=== PATIENT | female | born 1975 | race Caucasian/White ===

== ENCOUNTER 2017-03-31 17:15 | Emergency (ER) | payer MEDICAID ==
--- NOTE | 2017-03-31 17:23 | ED Physician Documentation ---
PD HPI ANIMAL BITE - Stated complaint Stated Complaint: CAT SCRATCH - Chief complaint Chief Complaint: Wound - History obtained from History obtained from: Patient - History of Present Illness Location of injury(ies): Face (multiple areas of face, and also lac to right ear near tragus.) Details of the event: Cat, Pet animal, Well appearing, Provoked (patient was holding the cat and a dog came near it, the cat freaked out and started clawing , getting patient in the face and right ear. No injury to the eyes themselves.) Timing - onset: Today Timing - duration: Hours Timing - details: Abrupt onset Associated symptoms: No: Weakness, Numbness Contributing factors: No: Immunocompromised, Asplenic Similar symptoms before: Has not had sx before Recently seen: Not recently seen Review of Systems Constitutional: denies: Fever, Chills Eyes: denies: Loss of vision, Decreased vision, Irritation Nose: denies: Rhinorrhea / runny nose, Congestion Throat: denies: Sore throat PD PAST MEDICAL HISTORY - Past Medical History Cardiovascular: None Respiratory: None Neuro: None Endocrine/Autoimmune: None - Present Medications Home Medications: Ambulatory Orders Medication Instructions Recorded Confirmed Amox/Clav 875/125 [Augmentin] 1 each PO BID #10 tablet 03/31/17 - Allergies Allergies/Adverse Reactions: Allergies Allergy/AdvReac Type Severity Reaction Status Date / Time No Known Drug Allergies Allergy Verified 03/31/17 17:23 PD ED PE NORMAL - Vitals Vital signs reviewed: Yes - General General: Alert and oriented X 3, No acute distress, Well developed/nourished - HEENT HEENT: PERRL, EOMI, Other (right ear near tragus with small tear lac, without bleeding. Cleansed with cotton tipped applicator and then steri-strips placed. ) - Neck Neck: Supple, no meningeal sign, No adenopathy, Other (the face has multiple cat nail punctures on forehead, cheeks, and right sode of face. No FB nor bleeding noted. ) Results - Vitals Vitals: Vital Signs - 24 hr 03/31/17 17:15 Temperature 36.6 C Heart Rate 68 Respiratory 18 Rate Blood Pressure 147/82 H O2 Saturation 98 Oxygen O2 Source Room air PD MEDICAL DECISION MAKING - ED course Complexity details: considered differential, d/w patient Departure - Departure Disposition: 01 Home, Self Care Clinical Impression: Cat scratch of face Qualifiers: Encounter type: initial encounter Qualified Code(s): S00.81XA - Abrasion of other part of head, initial encounter; W55.03XA - Scratched by cat, initial encounter Laceration of right ear lobe Qualifiers: Encounter type: initial encounter Qualified Code(s): S01.311A - Laceration without foreign body of right ear, initial encounter Condition: Stable Record reviewed to determine appropriate education?: Yes Instructions: Bites Scratches Animal Prescriptions: Amox/Clav 875/125 [Augmentin] 1 each PO BID #10 tablet Comments: Cleanse facial wounds with soap and water and apply ointment 1-2 times daily. Leave the ear wound clean and dry and allow the steri-strips to fall off on their own in several days. Augmentin twice daily for 5 days to reduce chance of infection. Recheck if infection despite that. Tylenol or Ibuprofen as needed for pains. At least one of your blood pressure readings in the ER today was elevated above the normal level. If you have diagnosed high blood pressure in the past, please be sure you are taking your BP medications and eating low salt diet. If you do not have know high BP, then being high today does not mean it is a lobsterman issue. It might be reactively high to the situation that has you here. You should follow up with your primary care to have the blood pressure checked again in the next few days/week or so to see if it is persistently high. If so, then you may need medication or changes in diet/lifestyle to treat it.
[2017-03-31] MEDS ORDERED: AMOX/CLAV 875 MG/125 MG TABLET PO STA (17:38)
[2017-03-31] MEDS ORDERED: AMOX/CLAV 875 MG/125 MG TABLET PO ONE (17:40)
[2017-03-31 18:09] VITALS: BP 133/90
== END 2017-03-31 18:07 | disposition home or self-care (01) ==
LOC: ED 17:15
DX: S00.81XA Abrasion of other part of head, initial encounter (principal); S01.311A Laceration without foreign body of right ear, initial encounter; W55.03XA Scratched by cat, initial encounter; R03.0 Elevated blood-pressure reading, without diagnosis of hypertension
CPT/HCPCS: 99283; A9270

== ENCOUNTER 2019-01-15 21:27 | Emergency (ER) | payer MEDICAID ==
[2019-01-15] MEDS ORDERED: IPRATROPIUM/ALBUTEROL 3 ML NEB INH STA (23:01)
[2019-01-15] MEDS ORDERED: ACETAMINOPHEN 325 MG TABLET PO STA (23:01)
--- NOTE | 2019-01-15 23:33 | XRAY Report ---
Reason: cough, dyspnea Procedure Date: 01/15/2019 Accession Number: [id number] / [id number] Procedure: XR - Chest 2 View X-Ray CPT Code: 19781 FULL RESULT: EXAM: CHEST RADIOGRAPHY EXAM DATE: 01/15/2019 11:24 PM. CLINICAL HISTORY: Cough, dyspnea.; Heavy shortness of breath on Friday, heavy nonproductive cough today. COMPARISON: None. TECHNIQUE: 2 views. FINDINGS: Lungs/Pleura: No focal opacities evident. No pleural effusion. No pneumothorax. Normal volumes. Mediastinum: Heart and mediastinal contours are unremarkable. Other: None. IMPRESSION: Normal 2-view chest radiography. [facility]
--- NOTE | 2019-01-16 00:12 | ED Physician Documentation ---
PD HPI URI - Stated complaint Stated Complaint: FLU SYMPTOMS - Chief complaint Chief Complaint: Heent - History obtained from History obtained from: Patient - History of Present Illness Timing - onset: How many days ago (5) Timing duration: Days (5) Timing details: Gradual onset Associated symptoms: Dry cough. No: Fever Contributing factors: Sick contact (daughter diagnosed with influenza (by swab) last week) Improves by: Rest Worsened by: Activity Similar symptoms before: Has not had sx before Recently seen: Not recently seen Review of Systems Constitutional: denies: Fever Throat: denies: Sore throat Cardiac: denies: Chest pain / pressure Respiratory: reports: Dyspnea, Cough Musculoskeletal: denies: Extremity swelling PD PAST MEDICAL HISTORY - Past Medical History Past Medical History: Yes Cardiovascular: None Respiratory: Asthma Neuro: None Endocrine/Autoimmune: None GI: None [employer]: None : None HEENT: None Psych: None Musculoskeletal: None Derm: None - Past Surgical History Past Surgical History: Yes /[employer]ER: section - Present Medications Home Medications: Ambulatory Orders Medication Instructions Recorded Confirmed Amox/Clav 875/125 [Augmentin] 1 each PO BID #10 tablet 03/31/17 Norgestimate-Ethinyl Estradiol 1 tab PO DAILY 03/31/17 03/31/17 [Ortho Tri-Cyclen Lo Tablet] metFORMIN [Glucophage] 500 mg PO BID 03/31/17 03/31/17 Albuterol Sulf [Ventolin Hfa 1 - 2 puffs INH Q4HR PRN #1 inhaler 01/16/19 Inhaler] predniSONE [Prednisone] 40 mg PO DAILY 4 Days #8 tablet 01/16/19 - Allergies Allergies/Adverse Reactions: Allergies Allergy/AdvReac Type Severity Reaction Status Date / Time No Known Drug Allergies Allergy Verified 03/31/17 17:49 - Social History Does the pt smoke?: No Smoking Status: Never smoker Does the pt drink ETOH?: No Does the pt have substance abuse?: No - Immunizations Immunizations are current?: Yes - POLST Patient has POLST: No PD ED PE NORMAL - Vitals Vital signs reviewed: Yes - General General: Alert and oriented X 3, No acute distress, Well developed/nourished - HEENT HEENT: Pharynx benign - Neck Neck: Supple, no meningeal sign - Cardiac Cardiac: RRR, No murmur - Respiratory Respiratory: No respiratory distress, Other (bibasilar rhonchi, mild) - Derm Derm: Normal color, Warm and dry - Extremities Extremities: No edema Results - Vitals Vitals: Vital Signs - 24 hr 01/15/19 01/15/19 01/16/19 23:11 23:26 00:30 Heart Rate 103 H 103 H Respiratory 17 18 17 Rate Blood Pressure 122/79 O2 Saturation 96 Oxygen O2 Source Room air - Labs Labs: Laboratory Tests 01/15/19 21:35 Influenza A (Rapid) Negative Influenza B (Rapid) Negative - Rads (name of study) chest xray Radiology: Prelim report reviewed, See rad report PD MEDICAL DECISION MAKING - ED course Complexity details: reviewed results, re-evaluated patient, considered differential, d/w patient Departure - Departure Disposition: 01 Home, Self Care Clinical Impression: URI (upper respiratory infection) Condition: Good Instructions: ED URI Viral Follow-Up: Evie Pelayo MD [Primary Care Provider] - Prescriptions: Albuterol Sulf [Ventolin Hfa Inhaler] 1 - 2 puffs INH Q4HR PRN #1 inhaler PRN Reason: Shortness Of Air/Wheezing predniSONE [Prednisone] 40 mg PO DAILY 4 Days #8 tablet Comments: Take the steroid (prednisone) as prescribed IF YOUR SYMPTOMS ARE NOT CONTROLLED WITH THE INHALER ALONE. Discharge Date/Time: 01/16/19 00:34
[2019-01-16 00:34] VITALS: BP 122/79
== END 2019-01-16 00:34 | disposition home or self-care (01) ==
LOC: ED 21:27
DX: J06.9 Acute upper respiratory infection, unspecified (principal)
CPT/HCPCS: 71046; 87275; 87276; 94640; 94664; 99283; A9270